=== PATIENT | male | born 1990 | race African-American/Black ===

== ENCOUNTER 2017-01-19 23:55 | Emergency (ER) | payer OTHER ==
--- NOTE | ~2017-01-19 | CR281 ---
[facility] A Service of [facility] & [facility] RADIOLOGY TEXT RESULTS PATIENT: ARPAN DIAZ LOCATION: [facility] : [birth year] UNIT #: [id number] AGE: [address]: Norman Hernandez MD SEX: M ORDER DR: [id number] [facility] [address] [place], [place] [address] [id number] E MR#: [id number] Acc #: [id number] NAME: ARPAN DIAZ : 1990 SEX: M STUDY DATE/TIME: 01/19/2017 22:25 UNIT: [facility] ROOM: STUDY DESCRIPTION: CR Wrist Min 3 View Lt Attending Physician: Norman Hernandez M.D. Ordering Physician: Ed Doctor [id number] [facility] Primary Care Physician: [facility] MEDICAL IMAGING REPORT This report is preliminary unless electronic signature is present EXAM Left wrist, 01/19/2017 HISTORY 26-year-old male with left hand and wrist pain for 2 months. Dog bite to the left hand 3 days ago. COMPARISON Left hand same date. FINDINGS 3 views of the left wrist demonstrate no acute fracture or dislocation. No radiopaque foreign bodies or soft tissue gas. IMPRESSION Unremarkable left wrist. Dictated by... Davis Greene M.D. THIS IS AN ELECTRONICALLY VERIFIED REPORT Davis Greene M.D. at 01/21/2017 4:41 PM SIMBA/kourtney TD: 01/20/2017 16:06 JOB #: [id number] MEDICAL IMAGING REPORT Page 1 of 1 COPY
--- NOTE | ~2017-01-19 | CR141 ---
[facility] A Service of [facility] & [facility] RADIOLOGY TEXT RESULTS PATIENT: ARPAN DIAZ LOCATION: [facility] : 91 UNIT #: [id number] AGE: [address]: Norman Hernandez MD SEX: M ORDER DR: [id number] [facility] [address] [place], [place] [address] [id number] E MR#: [id number] Acc #: [id number] NAME: ARPAN DIAZ : 1990 SEX: M STUDY DATE/TIME: 01/19/2017 22:26 UNIT: [facility] ROOM: STUDY DESCRIPTION: CR Hand Min 3 Views Lt Attending Physician: Norman Hernandez M.D. Ordering Physician: Flo Duron M.D. Primary Care Physician: [facility], MEDICAL IMAGING REPORT This report is preliminary unless electronic signature is present EXAM Left hand, 01/19/2017 HISTORY 26-year-old male with left hand and wrist pain for 2 months. Dog bite to the left hand 3 days ago. COMPARISON Left wrist, same date. FINDINGS 3 views of the left hand demonstrate no acute fracture or dislocation. No radiopaque foreign bodies or soft tissue gas. IMPRESSION Unremarkable left hand. Dictated by... Davis Greene M.D. THIS IS AN ELECTRONICALLY VERIFIED REPORT Davis Greene M.D. at 01/21/2017 4:41 PM SIMBA/sabino TD: 01/20/2017 16:11 JOB #: [id number] MEDICAL IMAGING REPORT Page 1 of 1 COPY
[~2017-01-19 23:55] MED LIST: AZITHROMYCIN500 MG PO; RONDEX-DM SYRU118 ML PO
== END 2017-01-20 01:50 | disposition home or self-care (01) ==
LOC: CED 23:55
DX: G56.02 Carpal tunnel syndrome, left upper limb (principal)
CPT/HCPCS: 29125; 73110; 73130; 99283

== ENCOUNTER 2017-05-04 01:01 | Emergency (ER) | payer OTHER ==
[~2017-05-04] VITALS: Ht 167.6 cm; Wt 68.0 kg
== END 2017-05-04 03:30 | disposition home or self-care (01) ==
LOC: CED 01:01
DX: I80.8 Phlebitis and thrombophlebitis of other sites (principal); F41.9 Anxiety disorder, unspecified
CPT/HCPCS: 99283

== ENCOUNTER 2017-05-18 07:22 | Emergency (ER) | payer OTHER ==
[~2017-05-18] VITALS: Ht 167.6 cm; Wt 68.0 kg
[2017-05-18 10:15] LABS: URINE SOURCE CLEAN CATCH
[2017-05-18 10:37] LABS: URINE APPEARANCE CLEAR; URINE BILIRUBIN NEG (NEG); URINE BLOOD NEG (NEG); URINE COLOR YELLOW; URINE GLUCOSE NEG (NEG); URINE KETONE NEG (NEG); URINE LEUKOCYTE ESTERASE NEG (NEG); URINE NITRATE NEG (NEG); URINE PH 5.5 (5-8); URINE PROTEIN NEG (NEG); URINE SPECIFIC GRAVITY 1.014 (1.003-1.035); URINE UROBILINOGEN 0.2 MG/DL (NEG)
[2017-05-18 10:40] LABS: CULTURE INDICATED? NO
[2017-05-18 10:45] LABS: AMPHETAMINE NEG (NEG); BARBITURATES NEG (NEG); BENZODIAZEPINES NEG (NEG); COCAINE NEG (NEG); MARIJUANA POS (NEG); OPIATES NEG (NEG); TRICYCLIC ANTIDEPRESSANTS NEG (NEG); U METHADONE NEG (NEG)
== END 2017-05-18 11:40 | disposition home or self-care (01) ==
LOC: CED 07:22
PROVIDERS: Nurse Practitioner
DX: N48.89 Other specified disorders of penis (principal); R30.0 Dysuria; K21.9 Gastro-esophageal reflux disease without esophagitis; F41.9 Anxiety disorder, unspecified; F17.200 Nicotine dependence, unspecified, uncomplicated
CPT/HCPCS: 80307; 81003; 87491; 87591; 99283